=== PATIENT | female | born 1975 | race African-American/Black ===

== ENCOUNTER 2021-10-02 09:20 | Emergency (ER) | payer OTHER ==
[~2021-10-02] VITALS: Ht 172.7 cm; Wt 83.9 kg
--- NOTE | 2021-10-02 09:25 | NUR ---
Due to staffing shortage in ER there is no assigned nurse for this patient and there is no 1:1 sitter available. Pt's is at bedside and security specialist is standing by.
[2021-10-02] MEDS ORDERED: LORAZEPAM 2 MG/1 ML VIAL IM ONE (09:30)
[2021-10-02] MEDS ORDERED: HALOPERIDOL LACTATE 5 MG/1 ML VIAL IM ONE (09:30)
[2021-10-02] MEDS ORDERED: diphenhydrAMINE 50 MG/1 ML VIAL IM ONE (09:30)
[2021-10-02] MEDS ORDERED: HALOPERIDOL LACTATE 5 MG/1 ML VIAL ONE (09:32)
[2021-10-02] MEDS ORDERED: LORAZEPAM 2 MG/1 ML VIAL ONE (09:32)
[2021-10-02] MEDS ORDERED: diphenhydrAMINE 50 MG/1 ML VIAL ONE (09:33)
--- NOTE | 2021-10-02 09:54 | NUR ---
PT IS IN ROOM #3. DR TODD EVALUATED THE PT.
[2021-10-02 10:13] LABS: ALANINE AMINOTRANSFERASE 15 U/L (14-59); ALKALINE PHOSPHATASE 62 U/L (50-136); ASPARTATE AMINOTRANSFERASE 21 U/L (15-37); BILIRUBIN,DIRECT 0.1 mg/dL (0.0-0.2); BILIRUBIN,TOTAL 0.3 mg/dL (0.2-1.0); CARBON DIOXIDE 28 mmol/L (21-32); CHLORIDE 102 mmol/L (98-107); CREATININE 1.3 mg/dL (0.6-1.3); ETHANOL < 3 MG/DL (0-0); GLUCOSE 143 mg/dL (74-106); POTASSIUM 2.8 mmol/L (3.5-5.1); TOTAL PROTEIN, SERUM 8.5 g/dL (6.4-8.2); UREA NITROGEN, BLOOD 12 mg/dL (7-18)
[2021-10-02 10:14] LABS: ACETAMINOPHEN < 2.0 ug/mL (10-30)
[2021-10-02 10:24] LABS: HEMATOCRIT 27.7 % (31.2-41.9); MEAN CORPUSCULAR HEMOGLOBIN 37.5 uug (24.7-32.8); MEAN CORPUSCULAR VOLUME 91.5 fL (75.5-95.3); PLATELET COUNT (AUTO) 438 K/uL (179-408)
--- NOTE | 2021-10-02 10:25 | NUR ---
Pt moved to room 5a, pt resting with eyes closed and no s/s of distress noted at this time. Left urgent message for Sera for psych eval.
--- NOTE | 2021-10-02 11:00 | NUR ---
Spoke with Sera via telephone, eta 60-90 mins.
[2021-10-02] MEDS ORDERED: MAGNESIUM SULFATE/D5W 100 ML IV SCH (11:15)
[2021-10-02] MEDS ORDERED: POTASSIUM CHLORIDE 50 ML IV SCH (11:15)
[2021-10-02] MEDS ORDERED: MAGNESIUM SULFATE/D5W 100 ML ONE ×2 (11:26→11:28)
[2021-10-02] MEDS ORDERED: POTASSIUM CHLORIDE 200 ML ONE (11:47)
--- NOTE | 2021-10-02 12:00 | NUR ---
Sera is at bedside speaking with the pt. She also spoke with the pt's via telephone.
--- NOTE | 2021-10-02 12:30 | NUR ---
Sera stated pt will not be placed on a 5150 hold at this time. Sera stated she spoke with the pt's via telephone about the plan of care. Sera stated the pt's will come and pick the pt up from the ER and will bring her home and follow up at [facility] as needed as she was treated at that hospital before.
[2021-10-02] MEDS ORDERED: MAGNESIUM OXIDE 400 MG TABLET PO ONE (13:00)
[2021-10-02] MEDS ORDERED: POTASSIUM CHLORIDE 20 MEQ TAB.PRT.SR PO ONE (13:00)
--- NOTE | 2021-10-02 13:00 | NUR ---
Pt's is here to pick the pt up, however plan of care has changed per . Pt will stay in ER and have labs repeated.
[2021-10-02] MEDS ORDERED: MAGNESIUM OXIDE 400 MG TABLET ONE (13:08)
[2021-10-02] MEDS ORDERED: POTASSIUM CHLORIDE 20 MEQ TAB.PRT.SR ONE (13:08)
--- NOTE | 2021-10-02 13:15 | NUR ---
Pt's left and stated he will come back later.
--- NOTE | 2021-10-02 14:00 | NUR ---
Pt is resting in gurney with eyes closed and no s/s of distress noted. Pt to have labs repeated per .
--- NOTE | 2021-10-02 14:30 | NUR ---
Pt eloped, pt was not found in room 5a. unarmed security guard stated pt was seen walking out of the facility on the sidewalk on [facility] [address] heading east. notified.
--- NOTE | 2021-10-02 14:31 | NUR ---
Called [employer] non-emergency line and reported the information to [id number] who stated she will dispatch officers. Per security at this facility pt was seen walking east on [address], this was reported to opr#[id number].
--- NOTE | 2021-10-02 14:48 | NUR ---
Nursing supervisor waterworks notified about the incident.
--- NOTE | 2021-10-02 14:51 | NUR ---
Called pt's Evan and notified him about the incident.
--- NOTE | 2021-10-02 16:00 | NUR ---
AQUILINO arrived to follow up on the incident. I called the pt's Evan who stated he called his on her cell phone, hw we was able to locate her and she is with him now. Information reported to AQUILINO.
== END 2021-10-02 16:00 | disposition left against medical advice (07) ==
LOC: EDBD 09:22 → ER 09:22
DX: F29 Unspecified psychosis not due to a substance or known physiological condition (principal); E87.6 Hypokalemia; F31.9 Bipolar disorder, unspecified; R94.31 Abnormal electrocardiogram [ECG] [EKG]; R73.9 Hyperglycemia, unspecified; Z20.822 Contact with and (suspected) exposure to COVID-19
CPT/HCPCS: 80048; 80076; 80299; 80307; 80320; 84702; 85025; 87426; 93005; 96372; 99285; J1200; J1630; J2060; J3475 ×2; J3480; 36415; G0480; J7030